=== PATIENT | female | born 1970 | race Caucasian/White ===

== ENCOUNTER 2017-06-22 13:17 | Emergency (ER) | payer OTHER ==
[~2017-06-22] VITALS: Ht 157.5 cm; Wt 62.6 kg
[~2017-06-22 13:17] MED LIST: ASPIRIN81 M2 PO; ATORVASTATIN CA20 MG PO; BAYER CHEWABLE81 MG PO; CYCLOBENZAPRINE5 MG PO; IBUPROFEN 800800 MG PO; KLOR-CON 1010 MEQ; KLOR-CON 1010 MEQ PO; LANOXIN 0.250.25 MG PO; LIPITOR 20 MG T20 M1 PO; LOPRESSOR25; PLAVIX 75 MG TA75 MG PO; POTASSIUM20 PO; SORINE 80 MG TA80 M1 PO
[2017-06-22 14:07] LABS: ABSOLUTE BASOPHILS 0.1 thou/uL (0.0-0.2); ABSOLUTE EOSINOPHILS 0.1 thou/uL (0.0-0.7); ABSOLUTE LYMPHOCYTES 1.6 thou/uL (0.8-5.3); ABSOLUTE MONOCYTES 0.4 thou/uL (0.0-1.2); ABSOLUTE NEUTROPHILS 4.1 thou/uL (1.6-8.1); BASOPHILS 1.1 %; EOSINOPHILS 1.8 %; HEMATOCRIT 34.3 % (37.0-47.0); HEMOGLOBIN 11.4 gm/dL (12.0-15.0); LYMPHOCYTES 25.2 %; MCH 27.3 pg (26.0-34.0); MCHC 33.1 g/dL (28.0-37.0); MCV 82.3 fL (80.0-100.0); MONOCYTES 5.9 %; MPV 9.3 fl. (7.2-11.1); NUCLEATED RBCS 0 /100WBC; PLATELET COUNT* 228 thou/uL (150-400); RBC 4.17 mil/uL (4.20-5.00); RDW-CV 14.4 % (10.5-14.5); WBC 6.3 thou/uL (4.0-11.0)
[2017-06-22 14:17] LABS: ANION GAP 6 mmol/L (7-16); BUN 11 mg/dL (7-18); CHLORIDE 109 mmol/L (98-107); CO2 27 mmol/L (21-32); CREATININE 0.5 mg/dL (0.6-1.3); GLUCOSE 90 mg/dL (70-99); POTASSIUM 3.5 mmol/L (3.5-5.1); SODIUM 142 mmol/L (136-145)
[2017-06-22 14:19] LABS: INR 1.1; PROTIME 10.9 Seconds (9.20-11.50)
[2017-06-22 14:33] LABS: ALBUMIN 3.1 g/dL (3.4-5.0); ALKALINE PHOSPHATASE 83 U/L (46-116); CK-MB MASS 0.5 ng/mL (<0.5-3.6); LIPASE 124 U/L (73-393); MAGNESIUM 1.7 mg/dL (1.8-2.4); NT-PRO BRAIN NAT PEPTIDE 136 pg/mL (<300); SGOT 17 U/L (15-37); SGPT 19 U/L (30-65); TOTAL BILIRUBIN 0.3 mg/dL (<0.1-1.0); TOTAL PROTEIN 6.9 g/dL (6.4-8.2); TROPONIN-I LEVEL <0.06 ng/mL (<0.06)
[2017-06-22 14:57] VITALS: BP 113/71
--- NOTE | 2017-06-22 15:54 | EKG ---
[place] [address] ELECTROCARDIOGRAM REPORT Name: COURTNEY ASHLEY Room: [facility]#: [id number] Admission: 06/22/17 Attend Phys: Discharge: 06/22/17 Date of : [birth year] Report #: [id number] THIS REPORT FOR: //name// [facility] ED Test Date: 2017-06-22 Test Time: 13:20:54 Pat Name: COURTNEY DA SILVADepartment: Room: Gender: F Knifer Up: : 1970 Requested By: Richard Burch Order Number: [id number] Roverto MD: Edmundo Diaz Measurements Intervals [place] Rate: 192 P: 0 SD: QRS: 86 QRSD: 78 T: -51 QT: 229 QTc: 409 Interpretive Statements Supraventricular tachycardia Repolarization abnormality, prob rate related Baseline wander in lead(s) III,V3 Compared to ECG 02/20/2016 01:30:03 No significant changes Electronically Signed On 06-22-2017 15:54:00 LEAD JAVA SOFTWARE ENGINEER by Edmundo Diaz [email or web address] <ELECTRONICALLY SIGNED> By: Edmundo Diaz MD, [facility] 06/22/17 1554 1320 1320 Edmundo Diaz MD, [facility] /EPI
--- NOTE | 2017-06-22 15:54 | EKG ---
[place] [address] ELECTROCARDIOGRAM REPORT Name: COURTNEY ASHLEY Room: [facility]#: [id number] Admission: 06/22/17 Attend Phys: Discharge: 06/22/17 Date of : [birth year] Report #: [id number] THIS REPORT FOR: //name// [facility] ED Test Date: 2017-06-22 Test Time: 13:29:19 Pat Name: COURTNEY DA SILVADepartment: Room: Gender: F Low Vision Therapist: MS : 1970 Requested By: Richard Burch Order Number: [id number] MD: Edmundo Diaz Measurements Intervals [place] Rate: 119 P: 58 [place]: 136 QRS: 89 QRSD: 95 T: -11 QT: 309 QTc: 435 Interpretive Statements Sinus tachycardia Probable left atrial enlargement Repol abnrm, consider ischemia Compared to ECG 02/20/2016 01:30:03 Possible ischemia now present Supraventricular tachycardia no longer present Electronically Signed On 06-22-2017 15:54:31 FLIGHT DIRECTOR by Edmundo Diaz [email or web address] <ELECTRONICALLY SIGNED> By: Edmundo Diaz MD, [facility] 06/22/17 1554 1329 1329 Edmundo Diaz MD, [facility] /EPI
== END 2017-06-22 14:58 | disposition home or self-care (01) ==
LOC: M.ERS 13:17
PROVIDERS: Emergency Medicine
DX: I47.1 Supraventricular tachycardia (principal); I10 Essential (primary) hypertension

== ENCOUNTER 2017-07-04 12:58 | Emergency (ER) | payer OTHER ==
[~2017-07-04] VITALS: Ht 139.7 cm; Wt 59.9 kg
[2017-07-04 13:14] LABS: ABSOLUTE BASOPHILS 0.1 thou/uL (0.0-0.2); ABSOLUTE EOSINOPHILS 0.3 thou/uL (0.0-0.7); ABSOLUTE LYMPHOCYTES 2.2 thou/uL (0.8-5.3); ABSOLUTE MONOCYTES 0.4 thou/uL (0.0-1.2); ABSOLUTE NEUTROPHILS 5.9 thou/uL (1.6-8.1); HEMATOCRIT 38.6 % (37.0-47.0); HEMOGLOBIN 12.6 gm/dL (12.0-15.0); MCH 26.9 pg (26.0-34.0); MCHC 32.7 g/dL (28.0-37.0); MCV 82.2 fL (80.0-100.0); MPV 9.4 fl. (7.2-11.1); NUCLEATED RBCS 0 /100WBC; PLATELET COUNT* 297 thou/uL (150-400); RBC 4.69 mil/uL (4.20-5.00); RDW-CV 14.7 % (10.5-14.5)
[2017-07-04 13:23] LABS: ANION GAP 7 mmol/L (7-16); APTT 27.8 Seconds (25.0-31.3); BUN 9 mg/dL (7-18); CALCIUM 8.5 mg/dL (8.5-10.1); CHLORIDE 105 mmol/L (98-107); CO2 29 mmol/L (21-32); CREATININE 0.8 mg/dL (0.6-1.3); GLUCOSE 121 mg/dL (70-99); INR 1.1; POTASSIUM 3.5 mmol/L (3.5-5.1); PROTIME 10.5 Seconds (9.20-11.50); SODIUM 141 mmol/L (136-145)
[2017-07-04 13:42] LABS: ALBUMIN 3.8 g/dL (3.4-5.0); ALKALINE PHOSPHATASE 128 U/L (46-116); CK-MB MASS < 0.5 ng/mL (<0.5-3.6); LIPASE 171 U/L (73-393); NT-PRO BRAIN NAT PEPTIDE 112 pg/mL (<300); SGOT 15 U/L (15-37); SGPT 15 U/L (30-65); TOTAL BILIRUBIN 0.1 mg/dL (<0.1-1.0); TOTAL PROTEIN 8.3 g/dL (6.4-8.2); TROPONIN-I LEVEL <0.06 ng/mL (<0.06)
[2017-07-04 14:01] VITALS: BP 112/60
--- NOTE | 2017-07-04 16:28 | EKG ---
[place] [address] ELECTROCARDIOGRAM REPORT Name: COURTNEY ASHLEY Room: [facility]#: [id number] Admission: 07/04/17 Attend Phys: Discharge: 07/04/17 Date of : [birth year] Report #: [id number] THIS REPORT FOR: //name// [facility] ED Test Date: 2017-07-04 Test Time: 13:06:54 Pat Name: COURTNEY DA SILVADepartment: Room: Gender: F Instrument Lens Grinder: : 1970 Requested By: Roscoe Churchill Order Number: [id number] MD: Royal Haro Measurements Intervals [place] Rate: 89 P: 60 [place]: 153 QRS: 90 QRSD: 95 T: 17 QT: 337 QTc: 410 Interpretive Statements Sinus rhythm Borderline right axis deviation ST depression, diffuse leads Compared to ECG 06/22/2017 13:29:19 ST (T wave) deviation now present Sinus tachycardia no longer present Electronically Signed On 07-04-2017 16:28:28 SPONGE PACKER by Royal Haro [email or web address] <ELECTRONICALLY SIGNED> By: Royal Haro MD, FACC 07/04/17 1628 1306 1306 Royal Haro MD, FAC /EPI
--- NOTE | 2017-07-04 16:28 | EKG ---
[place] [address] ELECTROCARDIOGRAM REPORT Name: COURTNEY ASHLEY Room: [facility]#: [id number] Admission: 07/04/17 Attend Phys: Discharge: 07/04/17 Date of : [birth year] Report #: [id number] THIS REPORT FOR: //name// [facility] ED Test Date: 2017-07-04 Test Time: 13:02:03 Pat Name: COURTNEY DA SILVADepartment: Room: Gender: F Flight Mechanic: : 1970 Requested By: Roscoe Churchill Order Number: [id number] MD: Royal Haro Measurements Intervals [place] Rate: 188 P: 0 [place]: QRS: 87 QRSD: 82 T: -58 QT: 276 QTc: 489 Interpretive Statements Supraventricular tachycardia Repolarization abnormality, prob rate related Compared to ECG 06/22/2017 13:29:19 Sinus tachycardia no longer present Possible ischemia no longer present Electronically Signed On 07-04-2017 16:28:01 LUNCHROOM ATTENDANT by Royal Haro [email or web address] <ELECTRONICALLY SIGNED> By: Royal Haro MD, [facility] 07/04/17 1628 1302 1302 Royal Haro MD, [facility] /EPI
== END 2017-07-04 14:02 | disposition home or self-care (01) ==
LOC: M.ERS 12:58
PROVIDERS: Family Medicine
DX: I47.1 Supraventricular tachycardia (principal); I10 Essential (primary) hypertension

== ENCOUNTER 2018-12-11 22:54 | Emergency (ER) | payer OTHER ==
[~2018-12-11] VITALS: Ht 162.6 cm; Wt 77.1 kg
[2018-12-11 23:17] LABS: ABSOLUTE BASOPHILS 0.1 thou/uL (0.0-0.2); ABSOLUTE EOSINOPHILS 0.3 thou/uL (0.0-0.7); ABSOLUTE LYMPHOCYTES 2.6 thou/uL (0.8-5.3); ABSOLUTE MONOCYTES 0.4 thou/uL (0.0-1.2); ABSOLUTE NEUTROPHILS 4.7 thou/uL (1.6-8.1); BASOPHILS 1.5 %; EOSINOPHILS 3.4 %; HEMATOCRIT 34.4 % (37.0-47.0); MCH 23.8 pg (26.0-34.0); MCHC 32.1 g/dL (28.0-37.0); MCV 74.1 fL (80.0-100.0); MONOCYTES 4.4 %; MPV 9.3 fl. (7.2-11.1); NUCLEATED RBCS 0 /100WBC; PLATELET COUNT* 341 thou/uL (150-400); POLYS 58.7 %; RBC 4.65 mil/uL (4.20-5.00); RDW-CV 18.2 % (10.5-14.5)
[2018-12-11 23:30] LABS: ANION GAP 8 mmol/L (7-16); BUN 11 mg/dL (7-18); CALCIUM 8.9 mg/dL (8.5-10.1); CHLORIDE 107 mmol/L (98-107); CO2 28 mmol/L (21-32); CREATININE 0.6 mg/dL (0.6-1.3); GLUCOSE 145 mg/dL (70-99); POTASSIUM 3.3 mmol/L (3.5-5.1); SODIUM 143 mmol/L (136-145)
[2018-12-11 23:34] LABS: APTT 27.1 Seconds (25.0-31.3); PROTIME 10.2 Seconds (9.20-11.50)
[2018-12-11 23:43] LABS: ALBUMIN 3.6 g/dL (3.4-5.0); ALKALINE PHOSPHATASE 145 U/L (46-116); CK-MB MASS < 0.5 ng/mL (<0.5-3.6); LIPASE 167 U/L (73-393); MAGNESIUM 1.9 mg/dL (1.8-2.4); NT-PRO BRAIN NAT PEPTIDE 100 pg/mL (<300); SGOT 18 U/L (15-37); SGPT 30 U/L (30-65); TOTAL BILIRUBIN 0.2 mg/dL (<0.1-1.0); TROPONIN-I LEVEL <0.06 ng/mL (<0.06)
[2018-12-12 00:05] VITALS: BP 130/66
--- NOTE | 2018-12-12 16:47 | EKG ---
[place] [address] ELECTROCARDIOGRAM REPORT Name: COURTNEY ASHLEY Room: [facility]#: [id number] Admission: 12/11/18 Attend Phys: Discharge: 12/12/18 Date of : [birth year] Report #: [id number] THIS REPORT FOR: //name// [facility] ED Test Date: 2018-12-11 Test Time: 22:59:48 Pat Name: COURTNEY DA SILVADepartment: Room: Gender: F Floor Space Allocator: : 1970 Requested By: Roscoe Churchill Order Number: [id number] MD: Royal Haro Measurements Intervals [place] Rate: 184 P: 0 [place]: QRS: 148 QRSD: 82 T: -34 QT: 270 QTc: 473 Interpretive Statements Supraventricular tachycardia Right axis deviation Repolarization abnormality, prob rate related Compared to ECG 07/04/2017 13:06:54 Early repolarization now present Sinus rhythm no longer present ST (T wave) deviation no longer present Electronically Signed On 12-12-2018 16:47:02 CDT by Royal Haro [email or web address] <ELECTRONICALLY SIGNED> By: Royal Haro MD, FACC 12/12/18 1647 2259 2259 Royal Haro MD, [facility] /EPI
--- NOTE | 2018-12-12 16:47 | EKG ---
[place] [address] ELECTROCARDIOGRAM REPORT Name: COURTNEY ASHLEY Room: [facility]#: [id number] Admission: 12/11/18 Attend Phys: Discharge: 12/12/18 Date of : [birth year] Report #: [id number] THIS REPORT FOR: //name// [facility] ED Test Date: 2018-12-11 Test Time: 23:12:27 Pat Name: COURTNEY DA SILVADepartment: Room: Gender: F Airbrush Artist Technical: JUAN : 1970 Requested By: Roscoe Churchill Order Number: [id number] MD: Royal Haro Measurements Intervals [place] Rate: 71 P: 54 OR: 153 QRS: 86 QRSD: 96 T: 22 QT: 395 QTc: 430 Interpretive Statements Sinus rhythm Probable left atrial enlargement Abnormal inferior Q waves Minimal ST depression, inferior leads Compared to ECG 07/04/2017 13:06:54 Inferior Q waves now present Q waves now present ST (T wave) deviation still present Electronically Signed On 12-12-2018 16:47:22 CDT by Royal Haro [email or web address] <ELECTRONICALLY SIGNED> By: Royal Haro MD, FAC 12/12/18 1647 231 231 Royal Haro MD, FAC /EPI
== END 2018-12-12 00:13 | disposition home or self-care (01) ==
LOC: M.ERS 22:54
PROVIDERS: Family Medicine
DX: I47.1 Supraventricular tachycardia (principal); I10 Essential (primary) hypertension

== ENCOUNTER 2019-02-13 09:46 | Emergency (ER) | payer OTHER ==
[~2019-02-13] VITALS: Ht 142.2 cm; Wt 59.0 kg
[2019-02-13 10:12] LABS: ABSOLUTE BASOPHILS 0.1 thou/uL (0.0-0.2); ABSOLUTE EOSINOPHILS 0.2 thou/uL (0.0-0.7); ABSOLUTE MONOCYTES 0.4 thou/uL (0.0-1.2); ABSOLUTE NEUTROPHILS 5.3 thou/uL (1.6-8.1); BASOPHILS 1.3 %; EOSINOPHILS 2.5 %; HEMATOCRIT 35.9 % (37.0-47.0); HEMOGLOBIN 11.5 gm/dL (12.0-15.0); LYMPHOCYTES 25.3 %; MCH 23.9 pg (26.0-34.0); MCHC 31.9 g/dL (28.0-37.0); MCV 74.8 fL (80.0-100.0); MONOCYTES 4.9 %; MPV 9.8 fl. (7.2-11.1); NUCLEATED RBCS 0 /100WBC; PLATELET COUNT* 351 thou/uL (150-400); RBC 4.79 mil/uL (4.20-5.00); RDW-CV 17.1 % (10.5-14.5); WBC 8.1 thou/uL (4.0-11.0)
[2019-02-13 10:26] LABS: ANION GAP 8 mmol/L (7-16); APTT 27.1 Seconds (25.0-31.3); BUN 9 mg/dL (7-18); CALCIUM 9.1 mg/dL (8.5-10.1); CHLORIDE 101 mmol/L (98-107); CO2 28 mmol/L (21-32); CREATININE 0.5 mg/dL (0.6-1.3); GLUCOSE 135 mg/dL (70-99); INR 1.1; POTASSIUM 3.7 mmol/L (3.5-5.1); PROTIME 10.9 Seconds (9.20-11.50); SODIUM 137 mmol/L (136-145)
[2019-02-13 10:39] LABS: ALBUMIN 3.9 g/dL (3.4-5.0); ALKALINE PHOSPHATASE 108 U/L (46-116); CK-MB MASS 0.6 ng/mL (<0.5-3.6); LIPASE 113 U/L (73-393); MAGNESIUM 1.9 mg/dL (1.8-2.4); NT-PRO BRAIN NAT PEPTIDE 130 pg/mL (<300); SGOT 17 U/L (15-37); SGPT 18 U/L (30-65); TOTAL BILIRUBIN 0.4 mg/dL (<0.1-1.0); TOTAL PROTEIN 8.5 g/dL (6.4-8.2); TROPONIN-I LEVEL <0.06 ng/mL (<0.06)
[2019-02-13 10:50] VITALS: BP 99/60
--- NOTE | 2019-02-14 17:56 | EKG ---
[place] [address] ELECTROCARDIOGRAM REPORT Name: COURTNEY ASHLEY Room: [facility]#: [id number] Admission: 02/13/19 Attend Phys: Discharge: 02/13/19 Date of : [birth year] Report #: [id number] THIS REPORT FOR: //name// [facility] ED Test Date: 2019-02-13 Test Time: 09:58:47 Pat Name: COURTNEY DA SILVADepartment: Room: Gender: F Desktop Publishing Specialist: : 1970 Requested By: Roscoe Churchill Order Number: [id number] MD: Vinod Leon Measurements Intervals [place] Rate: 76 P: 64 [place]: 162 QRS: 92 QRSD: 95 T: 8 QT: 353 QTc: 397 Interpretive Statements Sinus rhythm Borderline right axis deviation Minimal ST depression, diffuse leads Compared to ECG 12/11/2018 23:12:27 Inferior Q waves no longer present Q waves no longer present ST (T wave) deviation still present Electronically Signed On 02-14-2019 17:56:39 CDT by Vinod Leon [email or web address] <ELECTRONICALLY SIGNED> By: Florence Leon MD, [facility] 02/14/19 1756 0958 0958 Florence Leon MD, [facility] /EPI
== END 2019-02-13 10:50 | disposition home or self-care (01) ==
LOC: M.ERS 09:46
PROVIDERS: Family Medicine
DX: I47.1 Supraventricular tachycardia (principal); I10 Essential (primary) hypertension

== ENCOUNTER 2019-04-26 18:40 | Emergency (ER) | payer OTHER ==
[~2019-04-26] VITALS: Ht 165.1 cm; Wt 59.9 kg
[2019-04-26] MEDS ORDERED: MEDROL4 MG PO (19:06)
[2019-04-26 19:29] LABS: ABSOLUTE BASOPHILS 0.1 thou/uL (0.0-0.2); ABSOLUTE EOSINOPHILS 0.2 thou/uL (0.0-0.7); ABSOLUTE LYMPHOCYTES 1.9 thou/uL (0.8-5.3); ABSOLUTE MONOCYTES 0.5 thou/uL (0.0-1.2); ABSOLUTE NEUTROPHILS 6.6 thou/uL (1.6-8.1); EOSINOPHILS 2.6 %; HEMATOCRIT 33.7 % (37.0-47.0); HEMOGLOBIN 11.4 gm/dL (12.0-15.0); LYMPHOCYTES 20.2 %; MCH 25.1 pg (26.0-34.0); MCHC 33.9 g/dL (28.0-37.0); MCV 73.9 fL (80.0-100.0); MONOCYTES 5.4 %; MPV 8.8 fl. (7.2-11.1); NUCLEATED RBCS 0 /100WBC; PLATELET COUNT* 283 thou/uL (150-400); POLYS 70.8 %; RBC 4.56 mil/uL (4.20-5.00); RDW-CV 18.1 % (10.5-14.5); WBC 9.3 thou/uL (4.0-11.0)
[2019-04-26 19:41] LABS: CALCIUM 7.9 mg/dL (8.5-10.1); CREATININE 0.6 mg/dL (0.6-1.3); POTASSIUM 3.8 mmol/L (3.5-5.1)
[2019-04-26 19:52] LABS: ALBUMIN 2.9 g/dL (3.4-5.0); TOTAL BILIRUBIN 0.3 mg/dL (<0.1-1.0); TOTAL PROTEIN 6.9 g/dL (6.4-8.2)
[2019-04-26 20:08] VITALS: BP 108/62
--- NOTE | 2019-04-27 11:27 | EKG ---
[place] [address] ELECTROCARDIOGRAM REPORT Name: COURTNEY ASHLEY Room: [facility]#: [id number] Admission: 04/26/19 Attend Phys: Discharge: 04/26/19 Date of : [birth year] Report #: [id number] THIS REPORT FOR: //name// [facility] ED Test Date: 2019-04-26 Test Time: 18:58:43 Pat Name: COURTNEY DA SILVADepartment: Room: Gender: F Hairmasters Manager: : 1970 Requested By: Roby Kent Order Number: [id number] MD: Edmundo Diaz Measurements Intervals [place] Rate: 192 P: 0 [place]: QRS: 94 QRSD: 79 T: -85 QT: 267 QTc: 477 Interpretive Statements Supraventricular tachycardia Borderline right axis deviation Repolarization abnormality, prob rate related Compared to ECG 02/13/2019 09:58:47 Early repolarization now present Sinus rhythm no longer present ST (T wave) deviation no longer present Electronically Signed On 04-27-2019 11:27:44 PRESCRIPTION CLERK LENSES by Edmundo Diaz [email or web address] <ELECTRONICALLY SIGNED> By: Edmundo Diaz MD, FAC 04/27/19 1127 1858 57 Edmundo Diaz MD, [facility] /EPI
--- NOTE | 2019-04-27 11:28 | EKG ---
[place] [address] ELECTROCARDIOGRAM REPORT Name: COURTNEY ASHLEY Room: [facility]#: [id number] Admission: 04/26/19 Attend Phys: Discharge: 04/26/19 Date of : [birth year] Report #: [id number] THIS REPORT FOR: //name// [facility] ED Test Date: 2019-04-26 Test Time: 19:04:55 Pat Name: COURTNEY DA SILVADepartment: Room: Gender: F Manager Audio: : 1970 Requested By: Roby Kent Order Number: [id number] MD: Edmundo Diaz Measurements Intervals [place] Rate: 81 P: 52 MT: 135 QRS: 95 QRSD: 94 T: 58 QT: 351 QTc: 408 Interpretive Statements Sinus rhythm Probable left atrial enlargement Borderline right axis deviation Nonspecific repol abnormality, diffuse leads Compared to ECG 02/13/2019 09:58:47 Early repolarization now present ST (T wave) deviation no longer present Electronically Signed On 04-27-2019 11:28:02 COMMIS CHEF by Edmundo Diaz [email or web address] <ELECTRONICALLY SIGNED> By: Edmundo Diaz MD, FAC 04/27/19 1128 1904 1904 Edmundo Diaz MD, [facility] /EPI
== END 2019-04-26 20:10 | disposition home or self-care (01) ==
LOC: M.ERS 18:40
PROVIDERS: Emergency Medicine
DX: I47.1 Supraventricular tachycardia (principal); I10 Essential (primary) hypertension

== ENCOUNTER 2019-05-17 20:05 | Emergency (ER) | payer OTHER ==
[~2019-05-17] VITALS: Ht 149.9 cm; Wt 61.2 kg
[~2019-05-17 20:05] MED LIST changes: +MEDROL4 MG PO
[2019-05-17 20:51] LABS: ABSOLUTE BASOPHILS 0.1 thou/uL (0.0-0.2); ABSOLUTE EOSINOPHILS 0.2 thou/uL (0.0-0.7); ABSOLUTE LYMPHOCYTES 2.4 thou/uL (0.8-5.3); ABSOLUTE MONOCYTES 0.5 thou/uL (0.0-1.2); ABSOLUTE NEUTROPHILS 4.8 thou/uL (1.6-8.1); BASOPHILS 1.3 %; EOSINOPHILS 2.8 %; HEMATOCRIT 36.2 % (37.0-47.0); HEMOGLOBIN 11.6 gm/dL (12.0-15.0); MCH 23.9 pg (26.0-34.0); MCHC 32.1 g/dL (28.0-37.0); MCV 74.5 fL (80.0-100.0); MONOCYTES 6.7 %; MPV 9.2 fl. (7.2-11.1); NUCLEATED RBCS 0 /100WBC; PLATELET COUNT* 397 thou/uL (150-400); POLYS 59.2 %; RBC 4.86 mil/uL (4.20-5.00); RDW-CV 18.4 % (10.5-14.5); WBC 8.1 thou/uL (4.0-11.0)
[2019-05-17 20:54] LABS: CALCIUM 9.6 mg/dL (8.5-10.1); CREATININE 0.6 mg/dL (0.6-1.3); POTASSIUM 3.3 mmol/L (3.5-5.1)
[2019-05-17 21:04] LABS: ALBUMIN 3.9 g/dL (3.4-5.0); TOTAL BILIRUBIN 0.3 mg/dL (<0.1-1.0); TOTAL PROTEIN 8.7 g/dL (6.4-8.2)
[2019-05-17 21:34] VITALS: BP 105/87
--- NOTE | 2019-05-18 14:49 | EKG ---
[place] [address] ELECTROCARDIOGRAM REPORT Name: COURTNEY ASHLEY Room: [facility]#: [id number] Admission: 05/17/19 Attend Phys: Discharge: 05/17/19 Date of : [birth year] Report #: [id number] THIS REPORT FOR: //name// [facility] ED Test Date: 2019-05-17 Test Time: 20:17:40 Pat Name: COURTNEY DA SILVADepartment: Room: Gender: F : [facility] : 1970 Requested By: Alessia Atkinson Order Number: [id number] MD: Royal Haro Measurements Intervals [place] Rate: 189 P: 0 IN: QRS: 87 QRSD: 84 T: -70 QT: 267 QTc: 474 Interpretive Statements Supraventricular tachycardia Repolarization abnormality, prob rate related Baseline wander in lead(s) III Compared to ECG 04/26/2019 19:04:55 Sinus rhythm no longer present Electronically Signed On 05-18-2019 14:48:55 OTOLARYNGOLOGY NURSE by Royal Haro [email or web address] <ELECTRONICALLY SIGNED> By: Royal Haro MD, FACC 05/18/19 1448 16 16 Royal Haro MD, FACC /EPI
--- NOTE | 2019-05-20 10:40 | EKG ---
[place] [address] ELECTROCARDIOGRAM REPORT Name: COURTNEY ASHLEY Room: [facility]#: [id number] Admission: 05/17/19 Attend Phys: Discharge: 05/17/19 Date of : [birth year] Report #: [id number] THIS REPORT FOR: //name// [facility] ED Test Date: 2019-05-17 Test Time: 20:30:45 Pat Name: COURTNEY DA SILVADepartment: Room: Gender: F Jig Bore Tool Maker: : 1970 Requested By: Order Number: [id number] Roverto MD: Michael Schmitz Measurements Intervals [place] Rate: 85 P: 56 SD: 146 QRS: 94 QRSD: 93 T: 35 QT: 351 QTc: 418 Interpretive Statements Sinus rhythm Borderline right axis deviation Minimal ST depression, diffuse leads Baseline wander in lead(s) I,III,aVR,aVL,aVF,V6 Electronically Signed On 05-20-2019 10:40:14 JOB SETTER HONING by Michael Schmitz [email or web address] <ELECTRONICALLY SIGNED> By: Michael Schmitz MD, [facility] 05/20/19 1040 2030 29 Michael Schmitz MD, FAC /EPI
== END 2019-05-17 21:35 | disposition home or self-care (01) ==
LOC: M.ERS 20:05
PROVIDERS: Personal Emergency Response Attendant
DX: I47.1 Supraventricular tachycardia (principal); I10 Essential (primary) hypertension

== ENCOUNTER 2019-07-26 10:01 | Emergency (ER) | payer OTHER ==
[~2019-07-26] VITALS: Ht 157.5 cm; Wt 79.4 kg
[2019-07-26 10:25] LABS: ABSOLUTE BASOPHILS 0.1 thou/uL (0.0-0.2); ABSOLUTE EOSINOPHILS 0.5 thou/uL (0.0-0.7); ABSOLUTE LYMPHOCYTES 2.1 thou/uL (0.8-5.3); ABSOLUTE MONOCYTES 0.5 thou/uL (0.0-1.2); BASOPHILS 1.5 %; HEMATOCRIT 33.5 % (37.0-47.0); HEMOGLOBIN 10.9 gm/dL (12.0-15.0); LYMPHOCYTES 29.2 %; MCH 23.6 pg (26.0-34.0); MCHC 32.5 g/dL (28.0-37.0); MCV 72.6 fL (80.0-100.0); MONOCYTES 7.1 %; NUCLEATED RBCS 0 /100WBC; PLATELET COUNT* 329 thou/uL (150-400); POLYS 55.2 %; RBC 4.62 mil/uL (4.20-5.00); RDW-CV 17.1 % (10.5-14.5); WBC 7.2 thou/uL (4.0-11.0)
[2019-07-26 10:36] LABS: CALCIUM 8.9 mg/dL (8.5-10.1); CREATININE 0.5 mg/dL (0.6-1.3); POTASSIUM 3.7 mmol/L (3.5-5.1)
[2019-07-26 10:37] LABS: APTT 27.1 Seconds (25.0-31.3); PROTIME 10.5 Seconds (9.20-11.50)
[2019-07-26 10:50] LABS: ALBUMIN 3.7 g/dL (3.4-5.0); CK-MB MASS 0.7 ng/mL (<0.5-3.6); TOTAL BILIRUBIN 0.4 mg/dL (<0.1-1.0); TOTAL PROTEIN 8.3 g/dL (6.4-8.2)
[2019-07-26 11:13] VITALS: BP 105/55
--- NOTE | 2019-07-26 17:40 | EKG ---
[place] [address] ELECTROCARDIOGRAM REPORT Name: COURTNEY ASHLEY Room: [facility]#: [id number] Admission: 07/26/19 Attend Phys: Discharge: 07/26/19 Date of : [birth year] Date of Service: 07/26/19 1014 Report #: [id number] THIS REPORT FOR: //name// [facility] ED Test Date: 2019-07-26 Test Time: 10:14:13 Pat Name: COURTNEY DA SILVADepartment: Room: Gender: F Cribber: : 1970 Requested By: Roscoe Churchill Order Number: [id number] Roverto MD: Royal Haro Measurements Intervals [place] Rate: 91 P: 63 [place]: 140 QRS: 87 QRSD: 93 T: 19 QT: 331 QTc: 408 Interpretive Statements Sinus rhythm Minimal ST depression, diffuse leads Compared to ECG 05/17/2019 20:30:45 No significant changes Electronically Signed On 07-26-2019 17:39:52 WIRE WEB WORKER by Royal Haro [email or web address] <ELECTRONICALLY SIGNED> By: Royal Haro MD, FACC 07/26/19 1739 1014 1014 Royal Haro MD, FAC /EPI
--- NOTE | 2019-07-26 17:40 | EKG ---
[place] [address] ELECTROCARDIOGRAM REPORT Name: COURTNEY ASHLEY Room: [facility] [place]#: [id number] Admission: 07/26/19 Attend Phys: Discharge: 07/26/19 Date of : [birth year] Date of Service: 07/26/19 1005 Report #: [id number] THIS REPORT FOR: //name// [facility] ED Test Date: 2019-07-26 Test Time: 10:05:50 Pat Name: COURTNEY DA SILVADepartment: Room: Gender: F Fruit Bar Maker: : 1970 Requested By: Roscoe Churchill Order Number: [id number] MD: Royal Haro Measurements Intervals [place] Rate: 195 P: 0 [place]: QRS: 88 QRSD: 79 T: -63 QT: 241 QTc: 434 Interpretive Statements Supraventricular tachycardia Repolarization abnormality, prob rate related Baseline wander in lead(s) V1 Compared to ECG 05/17/2019 20:30:45 Early repolarization now present Sinus rhythm no longer present ST (T wave) deviation no longer present Electronically Signed On 07-26-2019 17:39:49 SENIOR CLINICAL RESEARCH SCIENTIST by Royal Haro [email or web address] <ELECTRONICALLY SIGNED> By: Royal Haro MD, FACC 07/26/19 1739 1005 1005 Royal Haro MD, [facility] /EPI
== END 2019-07-26 11:15 | disposition home or self-care (01) ==
LOC: M.ERS 10:01
PROVIDERS: Family Medicine
DX: I47.1 Supraventricular tachycardia (principal); I10 Essential (primary) hypertension

== ENCOUNTER 2019-08-25 10:03 | Emergency (ER) | payer OTHER ==
[~2019-08-25] VITALS: Ht 152.4 cm; Wt 61.7 kg
[2019-08-25 10:34] LABS: HEMATOCRIT 32.6 % (37.0-47.0); HEMOGLOBIN 10.4 gm/dL (12.0-15.0); MCH 22.8 pg (26.0-34.0); MCHC 31.9 g/dL (28.0-37.0); MCV 71.3 fL (80.0-100.0); MPV 9.4 fl. (7.2-11.1); RBC 4.57 mil/uL (4.20-5.00); RDW-CV 17.2 % (10.5-14.5)
[2019-08-25 10:41] LABS: CREATININE 0.5 mg/dL (0.6-1.3); POTASSIUM 3.5 mmol/L (3.5-5.1)
[2019-08-25 11:28] VITALS: BP 104/61
--- NOTE | 2019-08-26 10:08 | EKG ---
[place] [address] ELECTROCARDIOGRAM REPORT Name: VIVIAN ASHLEYTH Room: [facility]#: [id number] Admission: 08/25/19 Attend Phys: Discharge: 08/25/19 Date of : [birth year] Date of Service: 08/25/19 1017 Report #: [id number] THIS REPORT FOR: //name// [facility] ED Test Date: 2019-08-25 Test Time: 10:17:22 Pat Name: COURTNEY DA SILVADepartment: Room: Gender: F Hand Clipper: : 1970 Requested By: Hira Pruitt Order Number: [id number] MD: Michael Schmitz Measurements Intervals [place] Rate: 86 P: 66 [place]: 143 QRS: 89 QRSD: 92 T: 18 QT: 341 QTc: 408 Interpretive Statements Sinus rhythm Minimal ST depression, diffuse leads Electronically Signed On 08-26-2019 10:07:41 CDT by Michael Schmitz [email or web address] <ELECTRONICALLY SIGNED> By: Michael Schmitz MD, [facility] 08/26/19 1007 1017 16 Michael Schmitz MD, FAC /EPI
--- NOTE | 2019-08-26 10:08 | EKG ---
[place] [address] ELECTROCARDIOGRAM REPORT Name: COURTNEY ASHLEY Room: [facility]#: [id number] Admission: 08/25/19 Attend Phys: Discharge: 08/25/19 Date of : [birth year] Date of Service: 08/25/19 1008 Report #: [id number] THIS REPORT FOR: //name// [facility] ED Test Date: 2019-08-25 Test Time: 10:08:32 Pat Name: COURTNEY DA SILVADepartment: Room: Gender: F Cranberry Bog Supervisor: : 1970 Requested By: Hira Pruitt Order Number: [id number] MD: Michael Schmitz Measurements Intervals [place] Rate: 197 P: 163 [place]: 85 QRS: 94 QRSD: 76 T: -58 QT: 266 QTc: 482 Interpretive Statements Supraventricular tachycardia Borderline right axis deviation Repolarization abnormality, prob rate related Compared to ECG 07/26/2019 10:14:13 Early repolarization now present Sinus rhythm no longer present Electronically Signed On 08-26-2019 10:07:13 CDT by Michael Schmitz [email or web address] <ELECTRONICALLY SIGNED> By: Michael Schmitz MD, FACC 08/26/19 1007 1008 1008 Michael Schmitz MD, FAC /EPI
== END 2019-08-25 11:29 | disposition home or self-care (01) ==
LOC: M.ERS 10:03
PROVIDERS: Emergency Medicine Emergency Medical Services
DX: I47.1 Supraventricular tachycardia (principal); I10 Essential (primary) hypertension